=== PATIENT | female | born 1990 | race Two or more races ===

== ENCOUNTER 2024-01-22 02:03 | Observation (INO) | payer MEDICAID ==
[~2024-01-22] VITALS: Ht 170.2 cm; Wt 95.3 kg
== END 2024-01-22 03:30 | disposition home or self-care (01) ==
LOC: LDRP 02:03
PROVIDERS: ADMIT Obstetrics & Gynecology; ATTEND Obstetrics & Gynecology
DX: O62.9 Abnormality of forces of labor, unspecified (principal); O21.2 Late vomiting of pregnancy; Z3A.27 27 weeks gestation of pregnancy
CPT/HCPCS: 59025; 81002; 94760; G0378